=== PATIENT | male | born 1950 | race Caucasian/White ===

== ENCOUNTER 2020-09-08 19:18 | Inpatient (IN) | payer MEDICARE ==
[~2020-09-08] VITALS: Ht 172.7 cm; Wt 80.3 kg
[2020-09-08] MEDS ORDERED: LIPITOR10 MG PO (20:01)
[2020-09-08] MEDS ORDERED: KAPSPARGO SPRIN25 MG PO (20:01)
[2020-09-08] MEDS ORDERED: NITROGLYCERIN0.4 MG SL (20:02)
[2020-09-08] MEDS ORDERED: ASPIRIN81 MG PO (20:02)
[2020-09-08] MEDS ORDERED: ALLOPURINOL100 MG PO (20:02)
[2020-09-08] MEDS ORDERED: EZETIMIBE10 MG PO (20:02)
--- NOTE | 2020-09-08 23:15 | NUR ---
PATIENT ARRIVED TO RM#115 VIA STRETCHER FROM ER. PATIENT'S PAIN CURRENTLY CONTROLLED. PATIENT DENIES NAUSEA. GUILLERMO DOCK BOSS DOING ADMIT COMPUTER WORK. CALL LIGHT IS IN REACH.
--- NOTE | 2020-09-09 00:15 | NUR ---
PATIENT CALLED HAVING C/O 4/10 CRAMPING/ACHING ABD PAIN. 1MG IV DILAUDED AND 30MG IV ZOFRAN GIVEN, PATIENT REALLTY WOULD LIKE TO GET SOME SLEEP. PATIENT'S IS RESTING ON THE COUCH. LIGHTS TURNED DOWN. PATIENT SAYS HE WILL CALL IF NEEDING TO GET UP OR FOR ANYTHING ELSE. CALL LIGHT IS IN REACH. PATIENT IS NPO.
--- NOTE | 2020-09-09 02:25 | NUR ---
PATIENT'S VS ARE STABLE AND ASSESSMENT REMAINS UNCHANGED. CALL LIGHT IS IN REACH AND PATIENT'S IS ASLEEP ON THE COUCH. WAQAR HARDIN WAS HERE HELPING WITH VS. PATIENT HAD NO CURRENT CARE NEEDS.
--- NOTE | 2020-09-09 03:29 | NUR ---
PATIENT RESTING QUIETLY SUPINE, RESPIRATIONS REGULAR AND EVEN, EYES CLOSED, CALL LIGHT IN REACH. PATIENT'S IS ASLEEP ON THE SOFA.
--- NOTE | 2020-09-09 05:30 | NUR ---
PATIENT CONTINUES TO REST QUIETLY IN BED WITH EYES CLOSED, RESPIRATIONS REGULAR AND EVEN, AND CALL LIGHT IS IN REACH. PATIENT'S IS ASLEEP ON THE COUCH.
--- NOTE | 2020-09-09 06:00 | NUR ---
IN TO VITALS, PT UP TO VOID AT THIS TIME, NO FURTHER NEEDS
--- NOTE | 2020-09-09 06:25 | NUR ---
PATIENT SLEPT WELL BETWEEN TIMES WHEN STAFF HAD TO GO IN THE ROOM. PATIENT'S VS ARE STABLE. PATIENT'S BOWEL TONES ARE ACTIVE AND LUNGS CLEAR. IV INFUSING WNL. PATIENT'S SLEPT ON THE COUCH THROUGH THE NIGHT. PATIENT HAS HAD NO NAUSEA AND PATIENT GOT 1 DOSE OF IV DILAUDID 1MG AND 30MG IV TORADOL FOR ABD PAIN 08/28 AND HAS HAD NO CONCERNS ABOUT PAIN AGAIN UP TO THIS TIME. PATIENT HAD VOIDED 500MLS OF URINE BEFORE COMING TO M/S AND JUST VOIDED ANOTHER 200MLS. CALL PLACED AND MESSAGE LEFT FOR ABOUT URINE OUTPUT AND NEED FOR POSSIBLE NEW ORDERS. AWAITING RETURN CALL. PATIENT WAS UP TO BATHROOM AND BACK TO BED WITH ASSISTANCE FROM LASHAWN ZAVALETA. CALL LIGHT IS IN REACH.
[2020-09-09] MEDS ORDERED: CARVEDILOL6.25 MG PO (07:36)
--- NOTE | 2020-09-09 07:45 | NUR ---
REPORT RECEIVED FROM NIGHT RN AND PT. CARE RESUMED. PT. IS ALERT AND ORIENTED. PRESENT. HE REPORTS TOLERABLE TENDERNESS IN ABD. THAT IS WORSE WITH PALP. IN ALL QUADS. HE AND HIS STATE THAT HIS ABD. IS MORE DISTENDED THAN NORMAL AND HE FEELS BLOATED. BOWEL TONES HYPERACTIVE IN ALL QUADS. PT. VOIDED 200ML CLEAR YELLOW URINE THIS MORNING. SOFTWARE SYSTEMS ARCHITECT OUTPUT WAS 200ML DARK CONCENTRATED URINE FROM 2300 TO 0800. LUNGS CLEAR. IV SITE FLUSHES WELL AND WNL. DISCUSSED WALKING THIS MORNING AND POC. PT. LEFT RESTING IN BED WITH CALL LIGHT IN REACH.
--- NOTE | 2020-09-09 09:55 | NUR ---
PT. AMBULATED WITH SBA AROUND THE UNIT 3 TIMES AND TOLERATED WELL. REPORTED SLIGHTLY INCREASED PAIN WITH AMBULATION, BUT DENIED PAIN MEDS. PT. RESTING IN BED WITH AT BEDSIDE.
--- NOTE | 2020-09-09 10:18 | NUR ---
Case Mangement PT LIVES IN A ONE STORY HOUSE [place] . THERE ARE NO STEPS INTO THE HOUSE. PT STATES HE IS PRETTY ACTIVE. PT STATES HE DOES NOT NEED OR USE ANY EQUIPMENT AT HOME. HE IS RETIRED BUT [employer] PROPERTIES. PT STATES THEY ARE OKAY FINANCIALLY.
--- NOTE | 2020-09-09 13:54 | NUR ---
PATIENT STATES HIS ABDOMEN IS SLIGHTLY TENDER, BUT BETTER THAN THIS MORNING. ABD STILL DISTENDED AND BOWEL TONES HYPERACTIVE. IVF RUNNING AND IV SITE WNL. PT. EDUCATED ON GI CONTRAST DRINK AND UP TO AMBULATE THE FLOOR WITH .
--- NOTE | 2020-09-09 17:26 | NUR ---
PATIENT BACK FROM CT. IV RESTARTED. DISCUSSED POC.
--- NOTE | 2020-09-09 18:01 | NUR ---
PT. ADMITTED FOR ABDOMINAL PAIN. CURRENTLY NPO. AMBULATING INDEPENDENTLY IN THE ROOM AND AROUND THE UNIT. ABD. IS DISTENDED AND TENDER. IV SITE WNL WITH LR AT 125ML/HR. VITALS STABLE. URINE OUTPUT HAS PICKED UP THIS SHIFT AND IS QS. ALERT AND ORIENTED. IS PRESENT IN THE ROOM.
--- NOTE | 2020-09-09 19:19 | NUR ---
SET HIM UP FOR A SHOWER TODAY. PATIENT IS INDEPENDENT.
--- NOTE | 2020-09-09 19:30 | NUR ---
SHIFT REPORT RECEIVED FROM DAYSHIFT MIKHAIL DO AT [facility]. pt AWAKE AND RESTING IN BED, ALSO IN ROOM. pt WISHES TO TAKE SHOWER SOMETIME THIS EVENING, NO FURTHER NEEDS. CALL LIGHT IN REACH.
--- NOTE | 2020-09-09 20:22 | NUR ---
PTs IV SITE COVERED FOR SHOWER, NO FURTHER NEEDS, IN ROOM
--- NOTE | 2020-09-09 21:30 | NUR ---
ASSESSMENT COMPLETE, SCHEDULED MEDS GIVEN, SEE EMAR. pt AWAKE AND RESTING IN BED, ALSO IN ROOM. VSS, REPORTS TOLERABLE 2/10 PAIN, DENIES NEED FOR PAIN MEDICATION. MINIMAL ABD DISTENTION AND TENDERNESS NOTED, MORE TO RIGTH SIDE PER pt. BOWEL TONES ACTIVE. IV FLUIDS INFUSING PER MD ORDERS, SITE WNL. NO FURTHER NEEDS VERBALIZED AT THIS TIME, CALL LIGHT IN REACH.
--- NOTE | 2020-09-09 23:50 | NUR ---
pt NPO AT THIS TIME, LAST SMALL SIP OF WATER PROVIDED. NO FURTHER NEEDS, CALL LIGHT IN REACH. IV FLUIDS CONTINUE TO INFUSE PER MD ORDERS, SITE WNL. CALL LIGHT IN REACH.
--- NOTE | 2020-09-10 02:00 | NUR ---
ASSESSMENT COMPLETE, NO NEW CHANGES OR CONCERNS. pt DROWSY, BUT AWAKENS TO VOICE. VSS, IV FLUIDS REMAIN INFUSING PER MD ORDERS. NEW BAG HUNG, SEE EMAR. IN ROOM. NO FURTHER NEEDS, CALL LIGHT IN REACH.
--- NOTE | 2020-09-10 04:59 | NUR ---
WITNESSED CONSENT COMPLETE, VS AND I&O'S ALSO DONE. RT FRITZ TO COMPLETE PRE-OP EKG. NO FURTHER NEEDS AT THIS TIME, CALL LIGHT IN REACH.
--- NOTE | 2020-09-10 06:15 | NUR ---
SCHEDULED IV ABX INFUSING, SITE WNL. NO FURTHER NEEDS VERBALIZED. CALL LIGHT IN REACH.
--- NOTE | 2020-09-10 06:42 | NUR ---
pt HAD UNEVENTFUL NIGHT, SLEPT OFF AND ON THIS SHIFT. VSS, PAIN TOLERABLE AT 2/10, DENIED NEED FOR PAIN MEDICATION. pt MADE NPO AT MIDNIGHT, VOIDING QS. BOWEL TONES ACTIVE, NO REPORT OF NAUSEA. IV FLUIDS INFUISNG PER MD ORDERS, SITE WNL. WITNESS CONSENT SIGNED AND ATTACHED TO CHART.
--- NOTE | 2020-09-10 07:10 | NUR ---
BEDSIDE HANDOFF REPORT RECEIVED FROM UNDERWATER HUNTER RN. PT SITTING IN CHAIR, WALKED IN [place] WITH THIS AM. PT DENIES NEEDS AT THIS TIME.
--- NOTE | 2020-09-10 08:35 | NUR ---
PT WAS SITTING IN HIS CHAIR TALKING TO HIS . MORNING ASSESSMENT COMPLETE. LUNG SOUNDS WERE CLEAR. HEART TONES WERE WNL. BOWEL TONES WERE PRESENT. MORNING MEDICAITONS GIVEN WITHOUT PROBLEM. PT WAS PLEASANT BUT EXPRESSED ANXIETY ABOUT UPCOMING SURGERY. EDUCATION WAS TAUGHT ABOUT THE PRE-OP PLAN AND THERE IS THE OPTION OF ANXIETY MEDICATION BEFORE SURGERY. CALL LIGHT WAS WITHIN REACH AND PT WAS COMFORTABLE IN THE CHAIR. NO FURTHER NEEDS AT THIS TIME.
--- NOTE | 2020-09-10 08:49 | NUR ---
PATIENT IN CHAIR, IN ROOM. PRE SURG WIPES PROVIDED AND EXPLAINED. CALL [facility] IN REACH, NO OTHER NEEDS AT THIS TIME
--- NOTE | 2020-09-10 11:22 | NUR ---
I visited PT at the recommendation of the nursing staff due to his anxiety over his up coming surgery today. I had a tera connection with PT and his . They are traveling through [place] when PT needed the hospital. They are receiving good care and grateful for the surgeon who is working with them. I offered prayer which was received gratefully.
--- NOTE | 2020-09-10 13:36 | NUR ---
OR STATED THEY WILL BE COMING IN ABOUT 20 MINUTES. PT SWITCHED TO LR ON STRAIGHT TUBEING AND UPDATED ON STATUS OF SURGERY. PT DENIES OTHER NEEDS AT THIS TIME.
--- NOTE | 2020-09-10 13:51 | NUR ---
PT TO OR WITH MIKHAIL EATON
--- NOTE | 2020-09-10 15:09 | NUR ---
PATIENT GIVEN URINAL PER REQUEST. VOID PER URINAL. GIVEN MORE WARM BLANKETS. AT BEDSIDE. CALL LIGHT WITHIN REACH.
--- NOTE | 2020-09-10 18:43 | NUR ---
09/10/20 184 [address] May 1839 PATIENT ARRIVES TO PACU UNRESPONSIVE TO VERBAL STIMULI, ORAL AIRWAY IN PLACE. RESP EVEN AND UNLABORED, MASK AT 6 LITERS, SATS >96%. 184 PATIENT OPENS EYES TO VERBAL STIMULI, ORAL AIRWAY REMOVED. RESP EVEN AND UNLABORED, SNORING AT TIMES, MASK CONTINUES AT 6 LITERS. PATIENT SHAKES HEAD NO TO PAIN, THEN BACK TO SLEEP.
--- NOTE | 2020-09-10 19:00 | NUR ---
SHIFT REPORT RECEIVED FROM DAYSHIFT MIKHAIL RAMÍREZ AT BEDSIDE, pt IN OR AND IN ROOM. AWAITING pt'S ARRIVAL BACK TO FLOOR.
--- NOTE | 2020-09-10 19:33 | NUR ---
pt ARRIVED TO THE FLOOR FROM PACU, REPORT RECEIVED FROM MIKHAIL VALLEJO, LAP SITES X3 INTACT, STICKES AND STERI STRIPS IN PLACE. SCANT RED SHADOWING NOTED. WILL MONITOR. VSS, pt ON RA AND INTERACTIVE WITH STAFF. IN ROOM. NO NEEDS AT THIS TIME. CALL LIGHT IN REACH.
--- NOTE | 2020-09-10 20:30 | NUR ---
POST-OP VSS, pt REMAINS ON RA. NO DISTRESS NOTED. IN ROOM. CALL LIGHT IN REACH. IV FLUIDS RESUMED PER MD ORDERS, SITE WNL.
--- NOTE | 2020-09-10 21:30 | NUR ---
POST-OP VSS, NO NEW CHANGES OR CONCERNS. CALL LIGHT IN REACH. IN ROOM.
--- NOTE | 2020-09-10 22:00 | NUR ---
pt AWAKE AND RESTING IN BED, SCHEDULED MEDS GIVEN, SEE EMAR. pt REPORTS TOLERABLE 2/10 PAIN. DENIES NEED FOR PAIN MEDICATION, DENIES NAUSEA. LAP SITES X3 WNL, SEROSANGINEOUS SHADOWING NOTED TO SITE ABOVE UMBILLICUS, WILL CONTINUE TO MONITOR. STERI STRIPS REMAIN IN PLACE. CALL LIGHT IN REACH. IN ROOM.
--- NOTE | 2020-09-10 22:30 | NUR ---
in to get last post ops with rn, i&os done, cpox in place at this time, no further needs, in rm
--- NOTE | 2020-09-11 01:55 | NUR ---
CALL LIGHT ANSWERED, pt REPORTS INCREASING 5-6/10 PAIN, OPTIONS DISCUSSED WITH pt. pt REQUESTING TYLENOL AT THIS TIME, SEE EMAR. UP SBA TO BATHROOM TO VOID, STEADY ON FEET AND DENIES DIZZINESS. VSS, CPOX IN PLACE. ASSESSMENT COMPLETE, NO NEW CHANGES OR CONCERNS. CALL LIGHT IN REACH AND WARM BLANKET PROVIDED.
--- NOTE | 2020-09-11 01:55 | NUR ---
in to get vital, pt back from the toilet, ice water provided, no further needs
--- NOTE | 2020-09-11 06:12 | NUR ---
iv abx infusing, see emar. iv site wnl. no further needs, call light in reach.
--- NOTE | 2020-09-11 07:22 | NUR ---
CLARIFYING DRUG ORDER FROM TELEPHARMACY REGARDING DOSE OF TORADOL D/T pt'S AGE. PER SHIRLEY FROM PHARMACY, OKAY TO GIVE DOSE IS.
--- NOTE | 2020-09-11 07:26 | NUR ---
BEDSIDE HANDOFF REPORT RECEIVED FROM JUNIOR GRAPHIC DESIGNER RN. PT RESTING IN BED. PT RATING PAIN 4/10. AT BEDSIDE.
--- NOTE | 2020-09-11 07:55 | NUR ---
PT REQUESTING TYLENOL, RATING PAIN 5/10, GIVEN 1000MG PO. PT ON ROOM AIR, LUNG SOUNDS CLEAR. PT DENIES NAUSEA, REPORTING FLATUS THIS AM, BOWEL TONES ACTIVE, TOLERATING CLEAR LIQUID DIET. IV FLUIDS INFUSING LR AT 125ML/HR, IV PATENT. CMS INTACT, WITHOUT EDEMA, SCDS IN PLACE. ABD INCISION LAP SITES X3, GAUZE ANT TAPE OVER UPPER MIDLINE SITE, NO NEW DRAINAGE. DISCUSSED PLAN OF CARE, DISCUSSED WALKING IN [place] AFTER BREAKFAST, PT AGREEABLE. PT DENIES OTHER NEEDS AT THIS TIME.
--- NOTE | 2020-09-11 09:59 | NUR ---
PATIENT UP TO AMBULATE ENTIRE LOOP OF HALLWAY. PATIENT IS TOLERATING ACTIVITY WELL.
--- NOTE | 2020-09-11 11:44 | NUR ---
PT DOING WELL, RESTING IN BED, RATING PAIN 3/10. PT WALKED A FEW LAPS IN [place] THIS AM. PT ASSISTED TO ORDER FULL LIQUID LUNCH. PT DENIES OTHER NEEDS AT THIS TIME.
--- NOTE | 2020-09-11 12:00 | NUR ---
PT COMPLAINT OF PAIN 09/27, REQUESTING TYLENOL BUT IT IS TOO EARY TO HAVE, DISCUSSED MOTRIN AND PT IS AGREAABLE HE IS TRYING TO AVOID NARCOTICS, GIVEN 600MG PO MOTRIN. PT DENIES OTHER NEEDS AT THIS TIME.
--- NOTE | 2020-09-11 14:16 | NUR ---
afternoon assessment completed. no acute changes. pt states pain is well controlled after motrin, declining need for additional pain medication at this time. iv lfuids decreased to 75ml/hr per order. pt denies other needs at this time.
--- NOTE | 2020-09-11 15:13 | EKG ---
[facility] [address] [place], [place] [address] Signed Normal sinus rhythm Possible Left atrial enlargement T wave abnormality, consider lateral ischemia Abnormal ECG No previous ECGs available Confirmed by NICK SALES DO ([id number]) on 09/11/2020 3:13:37 PM Electronically Signed By: NICK SALES DO 09/11/20 1513 PATIENT NAME: MARCUS PALUMBO Electrocardiogram DATE OF : 52 PHYSICIAN: NICK SALES DO REPORT #: [id number] REPORT IS CONFIDENTIAL AND NOT TO BE RELEASED WITHOUT AUTHORIZATION
--- NOTE | 2020-09-11 15:20 | NUR ---
PATIENT CAN'T TAKE A SHOWER TODAY. I AM GOING TO SET IT UP TODAY. SO MAYBE HE CAN TAKE A SHOWER TOMORROW. HE DID BRUSH HE TEETH AND WASH HIS FACE.
--- NOTE | 2020-09-11 15:33 | NUR ---
PATIENT HAD DONE A TOTAL OF 4 LAPS AROUND MED SURG. WITH SO FAR TODAY.
--- NOTE | 2020-09-11 15:45 | NUR ---
PT WALKING IN [place] .
--- NOTE | 2020-09-11 16:47 | NUR ---
PT REQUESTING TYLENOL, RATING PAIN 6/10, GIVEN 1000MG PO TYLENOL. PT DENIES OTHER NEEDS AT THIS TIME.
--- NOTE | 2020-09-11 17:39 | NUR ---
PT ON ROOM AIR, LUNG SOUNDS CLEAR. LR INFUSING AT 75ML/HR. PAIN WELL CONTROLLED WITH TYLENOL AND MOTRIN. PT TOLERATED FULL LIQUID DIET, BOWEL TONES ACTIVE, PASSING FLATUS. PT WALKED IN [place] MULTPIPLE TIMES. ABD INCISIONS WITH STERISTRIPS, NO NEW DRAINAGE. CMS INTACT, SCDS INPLACE. VOIDING QS.
--- NOTE | 2020-09-11 19:00 | NUR ---
RECEIVED REPORT FROM MIKHAIL RAMÍREZ. pt RESTING IN BED WITH AT BEDSIDE. NO REQUESTS AT THIS TIME. WAQAR ABRAHAM IN ROOM. WHITEBOARD UPDATED. CALL LIGHT WITHIN REACH.
--- NOTE | 2020-09-11 20:26 | NUR ---
CALL LIGHT ON. pt REQUESTED PRN PAIN MEDS. ASSESSMENT DONE. MEDICATIONS GIVEN (SEE MAR). PAIN RATED 5/10. pt TALKED ABOUT AMBULATING AGAIN. NO FURTHER REQUESTS AT THIS TIME. CALL LIGHT WITHIN REACH. AT BEDSIDE. LAP SITES VISUALIZED, DRY DRAINAGE NOTED. BOWEL TONES ACTIVE. pt REPORTS PASSING GAS. SOME DISTENSION NOTED, ABD SOFT.
--- NOTE | 2020-09-11 20:56 | NUR ---
PT UP AMBULATING IN THE [place] X 3 LAPS WITH . TOLERATING WELL.
--- NOTE | 2020-09-11 22:00 | NUR ---
CALL LIGHT ON. SCDS PLACED. URINE EMPTIED. pt RESTING IN BED. REPORTED THAT PAIN IS "BETTER" AT BEDSIDE. CALL LIGHT WITHIN REACH.
--- NOTE | 2020-09-12 03:32 | NUR ---
CALL LIGHT ON. pt REQUESTED PRN PAIN MEDS FOR 3/10 PAIN. SEE MAR. EMPTIED URINE. NO CHANGES IN ASSESSMENT. pt REPORTED PASSING GAS. CALL LIGHT WITHIN REACH.
--- NOTE | 2020-09-12 05:31 | NUR ---
IN TO DO VITALS. pt AWAKE IN BED, STATED "I WAS JUST ABOUT TO CALL YOU FOR PAIN MEDICATION." PRN GIVEN (SEE MAR). ASSISTED pt WITH IV POLE SO HE COULD AMBULATE INTO BATHROOM. NO FURTHER REQUESTS. AT BEDSIDE. CALL LIGHT WITHIN REACH.
--- NOTE | 2020-09-12 07:45 | NUR ---
THIS RN RECEIVED REPORT FROM MARY ANN ELIZONDO. PT SITTING UP IN CHAIR, AT BEDSIDE. PT STATES THAT HIS PAIN IS 1/10, PT DOES REPORT SOME NAUSEA THAT HE BELIEVES TO BE FROM TAKING MEDS ON AN EMPTY STOMACH, MARY ANN ELIZONDO PROVIDED PT WITH A PUDDING, THIS RN TO FOLLOW UP.
--- NOTE | 2020-09-12 08:15 | NUR ---
THIS RN IN PTS ROOM TO CHECK ON PT AND DO MORNING ASSESSMENT. PT SITTING BACK IN BED. PT JUST FINISHING BREAKFAST AND TOLERATED WELL. PT DENIES ANY NAUSEA AT THIS TIME, STATING THE PUDDING THIS AM HELPED. PT STATES THAT HE IS STILL PASSING GAS IS FEELING BETTER. PT ASKING ABOUT DISCHARGE, THIS RN STATED TAHT SINCE PT IS FROM OUT OF STATE THE MD WILL BE MORE CAUTIOUS ABOUT DISCHARGE, PT STATED UNDERSTANDING
--- NOTE | 2020-09-12 09:42 | NUR ---
PATIENTS VITALS DONE AND CHARTED. OFFERED SHOWER WILL TALK WITH NOTHING NEEDED AT TIS TIME.
--- NOTE | 2020-09-12 10:00 | NUR ---
PT UP WALKING THE HALLS AT THIS TIME. APPEARS TO BE TOLERATING WELL
--- NOTE | 2020-09-12 11:08 | NUR ---
THIS RN IN PTS ROOM, PT STATES THAT HIS PAIN IS INCREASING AT THIS TIME. THIS RN TO GIVE PT 1000MG OF TYLENOL FOR PTS PAIN 07/28.
--- NOTE | 2020-09-12 12:20 | NUR ---
THIS RN IN PTS ROOM TO SALINE LOCK PT. PT STATES THAT HE WOULD LIKE TO SHOWER AFTER LUNCH. PT HAS ORDERED FOOD ACCORDING TO HIS DIET.
--- NOTE | 2020-09-12 12:21 | HP ---
[facility] [address], [place] [address] Signed ADMISSION DATE: 09/08/2020 REASON FOR ADMISSION: Abdominal pain, elevated white count and segment of small bowel thickening. HISTORY OF PRESENT ILLNESS: This 70-year-old white man is traveling from [place] to his home in [place], [place]. 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 Earlier in the day, the patient had progressive mid abdominal pain, which worsened to the point that he presented to the emergency room where he was evaluated by Dr. Dickson. His evaluation included a CBC which showed an elevated white count greater than 14,[address] scan of the abdomen, which did not show appendicitis, but did show a segment of small bowel that was circumferentially thickened. There is no proximal dilation to suggest imminent bowel obstruction, but certainly what appeared to be a segment of inflammatory change. Notably, the segment was not in the terminal ileum and the ileum itself appeared normal. The segment was considered about 6 cm in length with a thickened wall about 10 mm with uncertain etiology. Interpreting radiologist was Dr. Moody and I have reviewed the films as well and concur with those findings. The patient has never had bowel surgery in the past, so he did have an inguinal hernia in his 20s. 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 PAST MEDICAL HISTORY: Includes hypertension. Denies any family history of Crohn's disease, ulcerative colitis, or other bowel problems. He notes that his brother did have a bowel obstruction, etiology uncertain, though he noted his brother had alcoholic liver disease as well. SOCIAL HISTORY: He is . He is accompanied by his . He is driving his family as previously noted. REVIEW OF SYSTEMS: He denies any nausea, vomiting, or diarrhea. No urinary symptoms. He has had no back pain or chest pain. His pain is mostly in the central abdomen, though somewhat to the right side. Past medical history additionally includes a cardiac stent x1 approximately 12 years ago for which he takes an aspirin. Electronically Signed By: CHU DUBOIS MD 09/12/20 1221 PATIENT NAME: MARCUS PALUMBO HISTORY AND PHYSICAL DATE OF : 52 REPORT #: [id number] PHYSICIAN: CHU DUBOIS MD PCP: OTHER PCP REPORT IS CONFIDENTIAL AND NOT TO BE RELEASED WITHOUT AUTHORIZATION [facility] [address] [place] [id number] Signed ALLERGIES: The patient does note allergy to beesting as well as shellfish including lobster and venom from wasps. He had severe hypotension related to IV contrast administered during his angiogram. CURRENT MEDICATIONS: Include metoprolol 25 mg p.o. daily, atorvastatin (Lipitor) 10 mg daily, allopurinol 100 mg p.o. daily, ezetimibe 10 mg daily, aspirin 81 mg daily, and nitroglycerin 0.4 mg sublingual as needed. PHYSICAL EXAMINATION: GENERAL: Relatively thin white man who looks to be nontoxic at this time. VITAL SIGNS: Temperature 98.4, pulse 80, blood pressure 162/96, pulse oximetry is 97%. NECK: Shows no thyromegaly or cervical adenopathy. Trachea is midline. CHEST: Shows chest wall deformity on the right. He has normal respiratory excursion, however. Pulse is regular at 79 currently. ABDOMEN: Nondistended. There is no focal tenderness. No ascites. EXTREMITIES: Show no clubbing, cyanosis, or edema. LABORATORY STUDIES: Show white count of 14.8, hematocrit 42.5, platelets 169,000. Chem profile shows normal electrolytes. Bilirubin is normal at 1.4. Liver enzymes are normal. Lipase normal at 30. Urinalysis is normal. ASSESSMENT: His abdominal symptoms appear to be related to a segment of small bowel that has circumferential thickening. I doubt this represents an intussusception or neoplasm per se. However, the thickened bowel wall is peculiar and his symptoms correlate to its location. Given his white cell elevation and so forth, I would recommend admission to the hospital, intravenous fluid administration, parental pain control and further consideration for possible GI contrast, CT scan, or small-bowel follow-through proper. He does have segmental bowel wall thickening. Considerations must be maintained for small bowel neoplasm, inflammatory bowel disease with unifocal area of inflammation; localized problems including Meckel's diverticulum with inflammation, localized perforation and so on. The possibility of spurious CT scan finding must be considered, though I think it is less likely. I explained all this to the patient and his , they agree. PLAN: Admission to the hospital with IV fluids. Additional examination and studies as appropriate. Electronically Signed By: CHU DUBOIS MD 09/12/20 1221 PATIENT NAME: MARCUS PALUMBO HISTORY AND PHYSICAL DATE OF : 52 REPORT #: [id number] PHYSICIAN: CHU DUBOIS MD PCP: OTHER PCP REPORT IS CONFIDENTIAL AND NOT TO BE RELEASED WITHOUT AUTHORIZATION [address] [address] Signed MD TONY Sinha/MODL /[id number] cc: Gwyn Dickson MD Copies: GWYN DICKSON MD ~ Electronically Signed By: CHU DUBOIS MD 09/12/20 1221 PATIENT NAME: MARCUS PALUMBO HISTORY AND PHYSICAL DATE OF : 52 REPORT #: [id number] PHYSICIAN: CHU DUBOIS MD PCP: OTHER PCP REPORT IS CONFIDENTIAL AND NOT TO BE RELEASED WITHOUT AUTHORIZATION
--- NOTE | 2020-09-12 12:21 | OR ---
[facility] [address] [place], [place] [address] Signed DATE OF OPERATION: 09/10/2020 SURGEON: Chu Dubois MD PREOPERATIVE DIAGNOSIS: Probable acute Meckel's diverticulitis. POSTOPERATIVE DIAGNOSIS: Acute Meckel's diverticulitis with erosion of tip of Meckel's diverticulum with mass like lesion. PROCEDURE: Laparoscopic assisted small bowel resection of Meckel's diverticulum (segmental small bowel resection). ANESTHESIA: General endotracheal, Chu Johnston CRNA and local 20 mL of 0.25% Marcaine with epinephrine. INDICATION: This 70-year-old white man presented to the emergency room on 09/08/2020 with vague mid abdominal pain. A CT scan was performed, which showed an area of thickening of the small bowel. It was unclear exactly what this represented. He was mildly tender and had an elevated white count. He was admitted to the hospital, monitored and additional CT scan was obtained with GI contrast, which showed probably an acute Meckel's diverticulitis. The patient has been fluid resuscitated, is now to undergo segmental small bowel resection of an inflamed Meckel's diverticulum presumably. A laparoscopic approach will be planned. The risk of bleeding, infection, need for full open procedure and other unforeseen complications including missed diagnosis were reviewed with the patient and his . They understand and wished to proceed. FINDINGS: Indeed upon laparoscopy, he was found to have a large ulcerated Meckel's diverticulum with a nodular thickened tip . The segment of small bowel was explanted from the abdomen through an infraumbilical incision and segmental small-bowel resection undertaken with a hand-sewn end-to-end enteroenterostomy. He tolerated the procedure well. There were no other findings of concern. DESCRIPTION OF PROCEDURE: The patient was brought to the operating room, given a general endotracheal anesthetic. Electronically Signed By: CHU DUBOIS MD 09/12/20 1221 PATIENT NAME: MARCUS PALUMBO OPERATIVE REPORT DATE OF : 52 REPORT #: [id number] PHYSICIAN: CHU DUBOIS MD PCP: OTHER PCP REPORT IS CONFIDENTIAL AND NOT TO BE RELEASED WITHOUT AUTHORIZATION [facility] [address] [place], [place] [address] Signed He had been on Ancef 2 g IV as prophylactic antibiotics. Sequential compression device stockings were used. After satisfactory general endotracheal anesthesia, the abdomen was clipped and prepared with chlorhexidine solution and draped sterilely. An infraumbilical incision was made and using an open Ivet cannula technique pneumoperitoneum achieved to a level of 14 mmHg of carbon dioxide gas. Intraabdominal inspection showed no sign of ascites or carcinomatosis or purulence per se. The liver appeared normal. The epigastric port was placed and the camera replaced to that site. Single hand laparoscopic instrument manipulation of the ileum and cecum was undertaken showing no sign of abnormality there. Two handed instrumentation manipulation of bowel was deemed appropriate and on that basis, a right lower quadrant 5 mm port was placed. With two hand manipulation, starting at the ileocecal valve as noted by the antimesenteric fat pad of Kymberly, the small bowel was carefully and gently manipulated and run more proximally. Ultimately found was the expected pathology of a markedly inflamed, thick and moderately long Meckel's diverticulum. It was not tethered to the abdominal wall in any way, but did have an ulcerated end, although not perforated, and was quite inflamed indeed. A nodular appearance of the tip was noted. The grasper in the right lower quadrant gently held the small bowel in place. The infraumbilical port was removed and the incision extended inferiorly. Under direct visualization, the bowel was grasped with another laparoscopic grasper and delivered through the infraumbilical wound. The small bowel was withdrawn outside the abdomen and the Meckel's diverticulum was a bit larger than expected even. The small bowel beneath Meckel's diverticulum had some inflammation, but the dominant problem was at the tip of the Meckel's diverticulum itself. Segmental small bowel resection was deemed most appropriate as simple diverticulectomy would likely narrow the lumen of the bowel and certainly would not encompass all of the inflammation noted. The mesentery to the small bowel was incised. The vascular arcade draping over the mesenteric to antimesenteric side was ligated with a 3-0 silk suture and divided. The mesenteric vessels were secured with silk ties after securing with hemostats. A CHRIS stapling device was used proximally and distally to the Meckel's diverticular process for transection. An end-to-end enteroenterostomy was then undertaken in a two layer technique of interrupted 3-0 silk suture and interrupted 3-0 Vicryl suture. The small mesenteric defect was secured with interrupted 3-0 silk. The bowel was replaced to the abdominal cavity. Inspection showed no sign of other abnormality. The infraumbilical fascial layer was reapproximated with running #1 PDS suture. A 5 mm angled Olympus scope was placed in the right lower quadrant allow for explantation of the epigastric port Electronically Signed By: CHU DUBOIS MD 09/12/20 1221 PATIENT NAME: MARCUS PALUMBO OPERATIVE REPORT DATE OF : 52 REPORT #: [id number] PHYSICIAN: CHU DUBOIS MD PCP: OTHER PCP REPORT IS CONFIDENTIAL AND NOT TO BE RELEASED WITHOUT AUTHORIZATION [facility] [address] [place] [address] [place] [address] Signed which showed no sign of bleeding. The 5 mm port was removed under direct visualization after application of the scope through the epigastric site again showing no bleeding at the right lower quadrant port site. The trocar sites were then infiltrated with 20 mL of 0.25% Marcaine with epinephrine. Irrigation was undertaken. The skin was closed with running 3-0 vicryl suture at the infraumbilical and interrupted 3-0 Vicryl in the epigastric and right lower quadrant area. The patient tolerated the procedure well. Blood loss was minimal and sponge and instrument counts were correct x2. He was extubated without problem and taken to the recovery room in good condition. MD TONY Sinha/MODL /[id number] cc: Gwyn Mcgrath MD Dr. Copies: GWYN MCGRATH MD ~ Electronically Signed By: CHU DUBOIS MD 09/12/20 1221 PATIENT NAME: MARCUS PALUMBO OPERATIVE REPORT DATE OF : 52 REPORT #: [id number] PHYSICIAN: CHU DUBOIS MD PCP: OTHER PCP REPORT IS CONFIDENTIAL AND NOT TO BE RELEASED WITHOUT AUTHORIZATION
--- NOTE | 2020-09-12 13:40 | NUR ---
THIS RN IN PTS ROOM TO CHECK ON PT AND GIVE PT COLACE, WHILE IN PTS ROOM THIS RN REASSESSED PTS PAIN, PT STATED THAT HE WAS HAVING A TWINGE OF PAIN IN HIS ABDOMEN AND STATES THAT HE WOULD LIKE TO HAVE IBUPROPHEN, THIS RN PROVIDED TO PT. PT PLANS TO GET IN SHOWER. THIS RN WRAPPED PTS IV SITE.
--- NOTE | 2020-09-12 14:16 | NUR ---
PATIENT SHOWERED TODAY. WALKED 3 LAPS IN HOSPITAL. VITALS TAKEN AND CHARTED. PATIENT ATE ALL HIS MEAL. NO COMPLAINTS NOTHING ELSE NEEDED AT THIS TIME.
--- NOTE | 2020-09-12 16:50 | NUR ---
THIS RN IN PTS ROOM TO CHECK ON PT. PT STATES THAT HE WAS JUST WAKING UP FROM A NAP AND WAS PLANNING TO GET UP TO GO FOR A WALK. PT RATES PAIN 05/30
--- NOTE | 2020-09-12 17:06 | NUR ---
PT UP WALKING HALLS AT THIS TIME. PT STEADY ON HIS FEET AND HAS DONE AT LEAST 5 LAPS.
--- NOTE | 2020-09-12 17:54 | NUR ---
PATIENT ATE ALL HIS MEAL. VITALS DONE AND CHARTED. PATIENT WALKED 3 LAPS. NO COMPLAINTS. NOTHING ELSE NEEDED WATER REFRESHED.
--- NOTE | 2020-09-12 19:41 | NUR ---
REPORT RECEIVED FROM DAY SHIFT RN. PT SITTING IN RECLINER ALERT AND ORIENTED. DENIES NEEDS AT THIS TIME. WHITE BOARD UPDATED. IN ROOM. CALL LIGHT IN REACH.
--- NOTE | 2020-09-12 20:10 | NUR ---
PT AMB IN HALLWAY INDEPENDENTLY, TATIANA WELL.
--- NOTE | 2020-09-12 21:00 | NUR ---
EVENING ASSESSMENT COMPLETE. SCHEDULED MEDS ADMINISTERED PER EMAR. PT REPORTS PAIN IS TOLERABLE AT THIS TIME, DENIES PRN. LAP SITES INTACT WITH STERI STRIPS. NO DRAINAGE NOTED. BOWEL TONES ACTIVE. PT REPORTS FLATUS BUT NO BM. DENIES NAUSEA. NO QUESTIONS OR CONCERNS AT THIS TIME. REMAINS IN ROOM. CALL LIGHT IN REACH.
--- NOTE | 2020-09-12 22:30 | NUR ---
CALL LIGHT ANSWERED. PATIENT WANTED THE SCD,S ON. DONE. EMPTIED URINAL AND PLACED WITHIN REACH. NO OTHER NEEDS AT THIS TIME. IS LAYING DOWN ON THE COUCH.
--- NOTE | 2020-09-13 01:10 | NUR ---
PRN ADMINISTERED FOR 3/10 ABD PAIN. FRESH WATER PROVIDED. URINAL EMPTIED OF 300 ML CLEAR YELLOW URINE. DENIES FURTHER NEEDS. CALL LIGHT IN REACH.
--- NOTE | 2020-09-13 03:22 | NUR ---
PT RESTING IN BED WITH EYES CLOSED, NAD.
--- NOTE | 2020-09-13 06:38 | NUR ---
VS AND I&O COMPLETE. PRN ADMINISTERED FOR 3/10 ABD PAIN. ABD SOFT AND NON-DISTENDED. LAP SITES X 3 WITH STERI STRIPS INTACT. BOWEL TONES ACTIVE. PT REPORTS FLATUS. NO BM THIS SHIFT. FRESH COFFEE AND WATER PROVIDED.
--- NOTE | 2020-09-13 08:00 | NUR ---
REPORT RECEIVED. PT UP IN BATHROOM SHAVING. AT BEDSIDE. PT THEN OUT TO AMBULATE HALLS WITH . MASON RASMUSSEN.
--- NOTE | 2020-09-13 08:51 | NUR ---
PATIENT ATE AND IS SETTLED. PATIENT WALKED 3 LAPS IN HOSPITAL. WANTS TO SHOWER AT HOME. VITALS DONE AND CHARTED. NOTHING NEEDED AT THIS TIME.
--- NOTE | 2020-09-13 09:00 | NUR ---
NO CHANGE IN PLAN FOR DISCHARGE. PATEINT TO RETURN HOME WITH . NO BARRIERS KNOWN.
--- NOTE | 2020-09-13 09:30 | NUR ---
ASSESSMENT COMPLETED. PAIN 3/10 IN ABDOMEN. PT REPORTS PASSING FLATUS. BOWEL TONES ACTIVE. DENEIS NAUSEA. ATE WELL. NO N/T. HEART SOUNDS REGULAR. MEDICAITONS ADMSINTERED.
[2020-09-13] MEDS ORDERED: ACETAMINOPHEN500 MG PO (09:34)
[2020-09-13] MEDS ORDERED: DOCUSATE SODIU100 MG PO (09:34)
[2020-09-13] MEDS ORDERED: FAMOTIDINE20 MG PO (09:34)
[2020-09-13] MEDS ORDERED: IBUPROFEN600 MG PO (09:34)
--- NOTE | 2020-09-14 10:48 | DS ---
[facility] [address] [place], [place] [address] Signed ADMISSION DATE: 09/08/2020 DISCHARGE DATE: 09/13/2020 REASON FOR ADMISSION: This 70-year-old white man is traveling from [place] to his home in [place], [place]. 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 Earlier in the day of presentation to the emergency room, the patient had progressive mid abdominal pain, which worsened to the point that he presented to the emergency room. He was evaluated by Dr. Dickson, emergency room physician, evaluation showing an elevated white count greater than 14,000. A CT scan of the abdomen, which did not show appendicitis, but did show a segment of small bowel that was circumferentially thickened. He is admitted for further evaluation and care. PERTINENT PHYSICAL EXAMINATION: GENERAL: At time of admission showed a pleasant white man, who is relatively thin and nontoxic. VITAL SIGNS: Temperature 98.4, pulse 80, blood pressure 162/96, pulse oximetry 97% on room air. NECK: Normal. CHEST: Clear. HEART: Regular without murmur. ABDOMEN: Nondistended. There is no focal tenderness or ascites. EXTREMITIES: Shows no clubbing, cyanosis, or edema. LABORATORY STUDIES: Showed a white count of 14.8, hematocrit 42.5, platelets 169,000. Chem profile was normal as were electrolytes. Bilirubin was normal at 1.4. Liver enzymes normal. Lipase normal at 30. Urinalysis normal. HOSPITAL COURSE: The patient was admitted with abdominal pain and elevated white count and mild abdominal pain and a CT scan finding showing thickening of a midportion of small bowel. It was unclear if this represented a spurious finding or a true pathology of the abdominal cavity. A CT scan with GI contrast was performed (previously, no IV contrast given due to significant allergy to intravenous iodine). This showed findings highly suggestive of Meckel's diverticulum. His diagnosis was less likely acute Meckel's diverticulitis. On September 10, 2020, he underwent laparoscopy with identification of the offending pathology, which absolutely was consistent with acute Meckel's diverticulitis. The lesion was wide and somewhat elongated and showed marked inflammation at the tip with a purulent appearance, but without hiram perforation. The small bowel was withdrawn Electronically Signed By: CHU DUBOIS MD 09/14/20 1048 PATIENT NAME: MARCUS PALUMBO DISCHARGE SUMMARY DATE OF : 52 REPORT #: [id number] PHYSICIAN: CHU DUBOIS MD PCP: TIANNA CURRY DO REPORT IS CONFIDENTIAL AND NOT TO BE RELEASED WITHOUT AUTHORIZATION [facility] [address] [place], [place] [address] Signed through the umbilical port site and segmentally resected with end-to-end anastomosis. His postoperative course was rather unremarkable. He was begun on clear liquids immediately following operation and advanced promptly to full and ultimately a low-fiber diet. By the day of discharge, he is ambulating well, has flatus, tolerating a low-fiber diet and doing well. He requires no further medication. DISCHARGE MEDICATIONS: 1. Ibuprofen 600 mg p.o. q.6 hours as needed for pain #60. 2. Tylenol 500 mg two tablets p.o. q.6 hours as needed for pain #60 refill one. 3. Docusate 100 mg b.i.d. # 30 (per patient preference). 4. Pepcid 20 mg p.o. b.i.d. #60, no refill. 5. He will continue his oral medication of atorvastatin 10 mg p.o. daily, allopurinol 100 mg p.o. daily, ezetimibe 10 mg daily, aspirin 81 mg p.o. daily, nitroglycerin sublingual 0.4 mg as needed for chest pain. 6. Carvedilol 6.25 mg tablet b.i.d. DISCHARGE DIAGNOSIS: 1. Acute Meckel's diverticulitis, status post laparoscopic-assisted segmental small bowel resection with end-to-end anastomosis. 2. 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 3. Hypertension. 4. Dyslipidemia. 5. Gout. FOLLOW UP PLANS: The patient is free to see me here in [place] as desired or can call me at any time if there are any issues. He prefers to follow up with Tianna Curry DO, primary care physician at [facility] which is perfectly fine as well. His pathology report is still pending. I think it is highly unlikely there will be any malignant component to the Meckel's diverticulum that certainly will be observed for. MD TONY Sinha/JAYNEL /[id number] Electronically Signed By: CHU DUBOIS MD 09/14/20 1048 PATIENT NAME: MARCUS PALUMBO DISCHARGE SUMMARY DATE OF : 52 REPORT #: [id number] PHYSICIAN: CHU DUBOIS MD PCP: TIANNA CURRY DO REPORT IS CONFIDENTIAL AND NOT TO BE RELEASED WITHOUT AUTHORIZATION [address] [place] [address] Signed cc: Tianna Curry DO Copies: ~ Electronically Signed By: CHU DUBOIS MD 09/14/20 1048 PATIENT NAME: MARCUS PALUMBO DISCHARGE SUMMARY DATE OF : 52 REPORT #: [id number] PHYSICIAN: CHU DUBOIS MD PCP: TIANNA CURRY DO REPORT IS CONFIDENTIAL AND NOT TO BE RELEASED WITHOUT AUTHORIZATION
== END 2020-09-13 10:35 | disposition home or self-care (01) | DRG 331 ==
LOC: ED 19:18 → MS 22:12
PROVIDERS: ADMIT Surgery; ATTEND Surgery
PROC: 0DB80ZZ Excision of Small Intestine, Open Approach (ICD-10-PCS; principal; 2020-09-10 06:18)
DX: Q43.0 Meckel's diverticulum (displaced) (hypertrophic) (principal); Z20.822 Contact with and (suspected) exposure to COVID-19; I10 Essential (primary) hypertension; E78.5 Hyperlipidemia, unspecified; M10.9 Gout, unspecified; Z79.899 Other long term (current) drug therapy; Z95.5 Presence of coronary angioplasty implant and graft; Z79.82 Long term (current) use of aspirin; Z91.041 Radiographic dye allergy status
CPT/HCPCS: 00790; 36415; 74176; 80053; 81001; 83690; 85025; 93005; 93010; 96374; 96375; 99285-25; A9270; C9803; J0360; J0690; J1170; J1644; J1885; J2250; J2405; J2704; J2765; J3010; J7121; U0003